=== PATIENT | female | born 1985 | race Caucasian/White ===

== ENCOUNTER 2016-03-07 00:28 | Emergency (ER) | payer OTHER ==
[~2016-03-07] VITALS: Ht 170.2 cm; Wt 137.0 kg
[~2016-03-07 00:28] MED LIST: AMOX1TAB67 PO
[2016-03-07 00:30] VITALS: Ht 170.2 cm; Wt 137.0 kg
--- NOTE | 2016-03-07 04:50 | RADRPT ---
PROCEDURE: US left lower extremity venous Doppler CLINICAL INDICATION: Swelling TECHNIQUE: Multiple sonographic images of the left lower extremity deep venous system was obtained utilizing grayscale, color-flow, compressive sonography and Doppler imaging with augmentation. COMPARISON: No pertinent prior examinations were submitted for comparison. FINDINGS: There is echogenic thrombus with loss of flow and compressibility throughout the left common femoral vein and superficial femoral vein. Some partial flow and compressibility are seen within the popli teal vein. IMPRESSION: Positive for thrombus throughout the left common and superficial femoral veins. RPTAT: HIKT .Aric Marin MD, MD Date Time Electronically viewed and signed by .Aric Marin MD, on 03/07/2016 04:50 .T/
[2016-03-07] MEDS ORDERED: ENOXAPARIN 60 MG/0.6 ML SYG SC STA (05:02)
--- NOTE | 2016-03-07 05:04 | RADRPT ---
PROCEDURE: US upper extremity Venous Doppler study. CLINICAL INDICATION: Swelling TECHNIQUE: Multiple sonographic images of the right upper extremity deep venous system was obtaine d utilizing grayscale, color-flow, compressive sonography and doppler imaging with augmentation. Th e images were reviewed on a PACS workstation. COMPARISON: None. FINDINGS: There are normal venous wave forms demonstrated within the internal jugular, subclavian, and axillar y veins. The brachial, basilic, and cephalic veins demonstrate normal venous flow and compressibili ty. The radial and ulnar veins are patent. IMPRESSION: No sonographic evidence for deep venous thrombosis. RPTAT: HIKT .Aric Marin MD, MD Date Time Electronically viewed and signed by .Aric Marin MD, MD on 03/07/2016 05:04 .T/
[2016-03-07] MEDS ORDERED: HYDROCODONE/APAP (5/325) TAB PO ONE (05:30)
[2016-03-07] MEDS ORDERED: APIX5TAB PO (05:47)
[2016-03-07 05:59] VITALS: BP 120/69; PULSE 75; RESP 18
--- NOTE | 2016-03-07 06:03 | ERD ---
ER Documentation Chief Complaint Date/Time DATE: 03/07/16 TIME: 05:52 Chief Complaint tingling R thigh x 3 days,off Coumadin since Mar 2015 HPI This is a 30-year-old female with a past medical history of DVT in the right upper arm in 2011 presenting to the emergency department complaining of left upper thigh pain in the medial aspects and tingling for the past 3 days. Patient rates the pain 8 out of 10. Patient states that she just recently finished Coumadin in March 2015. Patient also states that she has always had right upper arm swelling and pain due to the previous DVT in 2011 however she thinks she might have a DVT there too. Patient denies any shortness of breath, chest pain. ROS All systems reviewed and are negative except as per history of present illness. Medications Home Meds Active Scripts Apixaban* (Eliquis*) 5 Mg Tablet, 10 MG PO BID for 7 Days, #42 TAB Prov:TEETEE FARRELL PA-C 03/07/16 Amoxicillin-Clavulanate K* (Augmentin*) 500 Mg Tab, 500 MG PO BID for 10 Days, TAB Prov:ALON DAVENPORT NP 07/02/15 Allergies Allergies: Coded Allergies: No Known Drug Allergies (Verified Allergy, Unknown, 07/02/15) PMhx/Soc History of Surgery: No Anesthesia Reaction: No Hx Neurological Disorder: No Hx Respiratory Disorders: No Hx Cardiac Disorders: No Hx Psychiatric Problems: No Hx Alcohol Use: No Hx Substance Use: No Hx Tobacco Use: No Smoking Status: Never smoker Physical Exam Vitals Vital Signs Date Time Temp Pulse Resp B/P Pulse Ox O2 Delivery O2 Flow Rate FiO2 03/07/16 00:30 98.6 83 18 166/76 99 Physical Exam General: WD/WN, in no apparent distress, non-toxic appearing Patient is morbidly obese HENT: NC/AT Eyes: Conjunctiva normal Neck: Supple Pulm: Clear to auscultation, normal labored breathing; no wheezing/rales/ rhonchi heard CV: Good capillary refill GI: Non-distended, no guarding Back: No masses Ext: NTTP in the medial aspect of the right upper thigh Patient is morbidly obese, it was a difficult to assess swelling No pitting edema Neuro: Moves on all fours Skin: intact Psych: Normal mood Results 24 hrs Current Medications Medications (Trade) Dose Ordered Sig/Torey Route PRN Reason Start Time Stop Time Status Last Admin Dose Admin Enoxaparin Sodium (Lovenox) 137 mg ONCE STAT SC 03/07/16 05:02 03/07/16 05:04 DC 03/07/16 05:26 Acetaminophen/ Hydrocodone Bitart (Jourdanton (5/325)) 2 tab ONCE ONCE PO 03/07/16 05:30 03/07/16 05:31 DC 03/07/16 05:18 Procedures/MDM This is a 30-year-old female with a past medical history of DVT in the right upper arm in 2011 and got off Coumadin therapy in March 2015 presenting to the emergency department complaining of left upper thigh pain and tingling in the medial aspect for the past 3 days. A duplex ultrasound was done of the left lower extremity and radiologist stated: Positive for thrombus throughout the left common and superficial femoral veins. I have a low suspicion for pulmonary embolism. Patient does not have any chest pain, shortness of breath. She is breathing well on room air and non- tachycardiac. Patient was given 137 mg of Lovenox IM. She was also given Jourdanton 10mg/650mg for pain relief. Patient is suitable for outpatient treatment and to follow-up with her primary care physician tomorrow and to get a referral vascular specialist. Strict precautions were given to return to the emergency department for any worsening signs or symptoms, or if not improving as expected. A prescription for Eliquis 10 mg twice daily for 7 days, 5mg twice daily after #42 was provided. I have consulted my supervising physician Dr. Carvajal who has helped advised my plan and agrees with the management above. Patient is hemodynamically stable for discharge. Strict precautions were given. Patient understands and agrees with this plan Departure Diagnosis: Primary Impression: DVT (deep venous thrombosis) DVT location: lower extremity Affected thrombotic vein of extremity: femoral Laterality: left Chronicity: acute Qualified Code: I82.412 - Acute deep vein thrombosis (DVT) of femoral vein of left lower extremity Condition: Fair Patient Instructions: Dvt Referrals: JUSTIN WALKER ROBERT [facility] YOU HAVE RECEIVED A MEDICAL SCREENING EXAM AND THE RESULTS INDICATE THAT YOU DO NOT HAVE A CONDITION THAT REQUIRES URGENT TREATMENT IN THE EMERGENCY DEPARTMENT. FURTHER EVALUATION AND TREATMENT OF YOUR CONDITION CAN WAIT UNTIL YOU ARE SEEN IN YOUR DOCTORS OFFICE WITHIN THE NEXT 1-2 DAYS. IT IS YOUR RESPONSIBILITY TO MAKE AN APPOINTMENT FOR FOLOW-UP CARE. IF YOU HAVE A PRIMARY DOCTOR --you should call your primary doctor and schedule an appointment IF YOU DO NOT HAVE A PRIMARY DOCTOR YOU CAN CALL OUR PHYSICIAN REFERRAL HOTLINE AT IF YOU CAN NOT AFFORD TO SEE A PHYSICIAN YOU CAN CHOSE FROM THE FOLLOWING [facility] [address] [facility] [address] [facility] [facility] [address] [facility] [address] [facility]. [facility] [address] [facility] [facility]. [address] Additional Instructions: Please follow-up with your primary care physician tomorrow, bring documents with you. You will likely need to get a referral to see a vascular surgeon. Take all medicines as directed. Return to this facility if you are not improving as expected. TEETEE FARRELL PA-C Mar 07, 2016 06:03
== END 2016-03-07 06:00 | disposition home or self-care (01) ==
LOC: FTE 00:28
DX: I82.412 Acute embolism and thrombosis of left femoral vein (principal)
CPT/HCPCS: 93971; 96372; J1650; Z7502; Z7610